=== PATIENT | male | born 1995 | race African-American/Black ===

== ENCOUNTER 2016-09-24 23:00 | Inpatient (IN) | payer OTHER ==
[~2016-09-24] VITALS: Ht 165.1 cm; Wt 63.8 kg
[2016-09-25] VITALS (9 sets, daily range): BP systolic 93–132; BP diastolic 42–61
[2016-09-25 01:11] LABS: HEMATOCRIT 41.3 % (38.0-50.0); MCH 25.8 PG (29.0-34.0); MCHC 32.4 G/DL (30.0-36.0); MCV 79.4 FL (86-99); PLATELET COUNT 265 K/uL (156-360); RBC DIS.WIDTH-CV 17.1 % (11.8-14.6); RBC DIS.WIDTH-SD 49.4 % (39-53)
[2016-09-25 01:31] LABS: CHLORIDE 106 mEq/L (99-109); POTASSIUM 3.7 mEq/L (3.7-5.4); SODIUM 137 mEq/L (136-147)
[2016-09-25 01:33] LABS: GLUCOSE 85 mg/dL (70-99)
[2016-09-25 01:35] LABS: ANION GAP 8 MEQ/L (2-14)
[2016-09-25 01:37] LABS: GFR ESTIMATE (CALCULATED) > 59 mL/min/
[2016-09-25 01:38] LABS: UREA NITROGEN (BUN) 9 mg/dL (9-23)
[2016-09-25 06:43] LABS: METH RESISTANT S AUREUS PCR NEGATIVE (NEGATIVE)
[2016-09-25 06:49] LABS: PROBE CHECK PASS; SPECIMEN PROCESSING CONTROL PASS
== END 2016-09-25 11:45 | DRG 87 ==
LOC: TRA → EME 23:00 → 4WEST 09-25 03:27 → EDOF 09-25 03:27 → 4WEST 09-25 04:20
PROVIDERS: Emergency Medicine; Surgery
DX: S02.0XXA Fracture of vault of skull, initial encounter for closed fracture (principal); S06.4X0A Epidural hemorrhage without loss of consciousness, initial encounter; Y92.149 Unspecified place in prison as the place of occurrence of the external cause; Y93.9 Activity, unspecified; Y08.89XA Assault by other specified means, initial encounter
CPT/HCPCS: 70450; 80048; 85027; 86900; 86901; 87641; 99281; 99285; J0690; J1170; J2405; J3010; J7030; J7050